=== PATIENT | female | born 1970 | race Caucasian/White ===

== ENCOUNTER 2017-01-08 09:58 | Emergency (ER) | payer OTHER ==
[2017-01-08 10:05] VITALS: BP 155/100; PULSE 74; TEMP 98.6; BMI 28.7
[2017-01-08] MEDS ORDERED: KETOROLAC TROMETHAMINE 60 MG/2 ML VIAL IM ONE (10:41)
[2017-01-08] MEDS ORDERED: KETOROLAC TROMETHAMINE 60 MG/2 ML VIAL ONE (10:43)
--- NOTE | 2017-01-08 10:53 | PDOC ---
History of Present Illness - General Chief Complaint: Back Pain Stated Complaint: BACK PAIN Time Seen by Provider: 01/08/17 10:32 History Source: Patient Exam Limitations: No Limitations - History of Present Illness Initial Comments: 01/08/17 10:50 CC several weeks of left lower back feliciano, getting worse; no trauma; no radiation Severity: reports: moderate Pain Location: reports: back Method of Injury: Yes: unknown (no trauma) Past History - Past Medical History Allergies/Adverse Reactions: Allergies Allergy/AdvReac Type Severity Reaction Status Date / Time No Known Allergies Allergy Verified 01/08/17 10:01 Home Medications: Ambulatory Orders NK [No Known Home Medication] 01/08/17 Other medical history: none - Psycho/Social/Smoking Cessation Hx Anxiety: No Suicidal Ideation: No Smoking History: Never smoked Have you smoked in the past 12 months: No Information on smoking cessation initiated: No Hx Alcohol Use: No Drug/Substance Use Hx: No Substance Use Type: None Review of Systems - Review of Systems Constitutional: No: Chills, Fever, Malaise HEENTM: No: Symptoms Reported Respiratory: No: Symptoms reported, Cough Cardiac (ROS): No: Symptoms Reported ABD/GI: No: Symptoms Reported : No: Symptoms Reported, Frequency, Flank Pain, Hematuria, Incontinence, Urgency Musculoskeletal: No: Symptoms Reported Integumentary: No: Symptoms Reported Neurological: No: Numbness, Paresthesia, Tingling, Weakness, Unsteady Gait *Physical Exam - Vital Signs Last Vital Signs Temp Pulse Resp BP Pulse Ox 98.6 F 74 18 155/100 100 01/08/17 10:02 01/08/17 10:02 01/08/17 10:02 01/08/17 10:02 01/08/17 10:02 - Physical Exam General Appearance: Yes: Appropriately Dressed. No: Apparent Distress HEENT: positive: TMs Normal, Pharynx Normal Neck: positive: Supple. negative: Tender, Rigid Respiratory/Chest: positive: Lungs Clear. negative: Chest Tender, Accessory Muscle Use Gastrointestinal/Abdominal: negative: Normal Bowel Sounds, Tender, Flat, Pulsatile Mass, Guarding, Tenderness Rectal Exam: positive: deferred Musculoskeletal: positive: Other (tender to area of left SI joint) Neurologic: positive: Alert, Motor Strength 5/5, Other (no foot drop; SLRs= no root pain). negative: Sensory Deficit, Babinski Deep Tendon Reflexes: Ankle (L): 1+, Ankle (R): 1+, Knee (L): 1+, Knee (R): 1+ Medical Decision Making - Medical Decision Making 01/08/17 11:34 Lower BP better post toradol *DC/Admit/Observation/Transfer Diagnosis at time of Disposition: Back pain Qualifiers: Back pain location: low back pain Chronicity: acute Back pain laterality: left Sciatica presence: without sciatica Qualified Code(s): M54.5 - Low back pain
[2017-01-08 11:02] LABS: URINE APPEARANCE CLEAR; URINE BILIRUBIN NEGATIVE (NEGATIVE); URINE COLOR YELLOW; URINE GLUCOSE (UA) NEGATIVE (NEGATIVE); URINE KETONE NEGATIVE (NEGATIVE); URINE LEUK ESTERASE NEGATIVE (NEGATIVE); URINE NITRITE NEGATIVE (NEGATIVE); URINE PROTEIN NEGATIVE (NEGATIVE); URINE UROBILINOGEN NEGATIVE E.U./dl (0.2-1.0)
[2017-01-08 11:05] LABS: URINE BLOOD 1+ (NEGATIVE)
[2017-01-08 11:07] LABS: URINE MUCUS RARE; URINE WBC <1 /hpf (3-5)
--- NOTE | 2017-01-08 11:42 | PDOC ---
*Physical Exam - Vital Signs Last Vital Signs Temp Pulse Resp BP Pulse Ox 98.6 F 74 18 155/100 100 01/08/17 10:02 01/08/17 10:02 01/08/17 10:02 01/08/17 10:02 01/08/17 10:02 ED Treatment Course - ADDITIONAL ORDERS Additional order review: Laboratory Results 01/08/17 10:40 Urine Color Yellow Urine Appearance Clear Urine pH 5.0 Urine Protein Negative Urine Glucose (UA) Negative Urine Ketones Negative Urine Blood 1+ H Urine Nitrite Negative Urine Bilirubin Negative Urine Urobilinogen Negative Ur Leukocyte Esterase Negative Urine HCG, Qual Negative - Medications Given in the ED: ED Medications Discontinued Medications Generic Name Dose Route Start Last Admin Trade Name Freq PRN Reason Stop Dose Admin Ketorolac Tromethamine 60 mg 01/08/17 10:41 01/08/17 11:14 Toradol Injection - IM 01/08/17 10:42 60 mg ONCE ONE Administration *DC/Admit/Observation/Transfer Diagnosis at time of Disposition: Back pain Qualifiers: Back pain location: low back pain Chronicity: acute Back pain laterality: left Sciatica presence: without sciatica Qualified Code(s): M54.5 - Low back pain - Prescriptions Prescriptions: Naproxen [Naprosyn -] 500 mg PO BID #30 tablet - Referrals Referrals: Shivam Hoskins MD [Staff Physician] -
[2017-01-08 11:52] LABS: URINE RBC 3 /hpf (0-3)
== END 2017-01-08 11:53 | disposition home or self-care (01) ==
LOC: JERFT 09:58
PROC: 3E0233Z Introduction of Anti-inflammatory into Muscle, Percutaneous Approach (ICD-10-PCS; principal; 2017-01-08)
DX: M54.5 Low back pain (principal)
CPT/HCPCS: 81003; 81015; 84703; 96372; 99281-25

== ENCOUNTER 2017-03-28 18:01 | Emergency (ER) | payer OTHER ==
[2017-03-28 18:21] VITALS: BP 117/77; PULSE 71; TEMP 98.1; BMI 27.1
[2017-03-28] MEDS ORDERED: traMADol HCL 50 MG TABLET PO ONE (18:56)
[2017-03-28] MEDS ORDERED: traMADol HCL 50 MG TABLET ONE (18:56)
--- NOTE | 2017-03-28 18:57 | PDOC ---
History of Present Illness - General Chief Complaint: Back Pain Stated Complaint: BACK PAIN Time Seen by Provider: 03/28/17 18:31 History Source: Patient - History of Present Illness Occurred: reports: other Pain Location: reports: back Past History - Past Medical History Allergies/Adverse Reactions: Allergies Allergy/AdvReac Type Severity Reaction Status Date / Time No Known Allergies Allergy Verified 03/28/17 18:19 Home Medications: Ambulatory Orders Naproxen [Naprosyn -] 500 mg PO BID #30 tablet 01/08/17 Lidocaine 5% Patch [Lidoderm Patch -] 1 patch TP DAILY #7 patch 03/28/17 Tramadol HCl 50 mg PO Q6H #15 tablet MDD 200mg 03/28/17 Other medical history: DENIES. - Psycho/Social/Smoking Cessation Hx Anxiety: No Suicidal Ideation: No Smoking History: Never smoked Have you smoked in the past 12 months: No Hx Alcohol Use: No Drug/Substance Use Hx: No Substance Use Type: None Review of Systems - Review of Systems Constitutional: No: Chills, Fever, Unexplained wgt Loss ABD/GI: No: Nausea, Vomiting : No: Dysuria, Flank Pain, Hematuria Musculoskeletal: Yes: Back Pain Neurological: No: Numbness, Tingling, Weakness *Physical Exam - Vital Signs Last Vital Signs Temp Pulse Resp BP Pulse Ox 98.1 F 71 19 117/77 99 03/28/17 18:19 03/28/17 18:19 03/28/17 18:19 03/28/17 18:19 03/28/17 18:19 - Physical Exam General Appearance: Yes: Appropriately Dressed, Mild Distress HEENT: positive: Normal Voice Respiratory/Chest: negative: Respiratory Distress Gastrointestinal/Abdominal: positive: Soft. negative: Tender Musculoskeletal: positive: Vertebral Tenderness (to L lower back). negative: CVA Tenderness Extremity: positive: Normal Inspection Integumentary: positive: Dry, Warm Neurologic: positive: Fully Oriented, Alert, Normal Mood/Affect, Motor Strength 01/04 Medical Decision Making - Medical Decision Making 03/28/17 18:57 46 yo F, no sig hx, p/w back pain. pt c/o intermittent L lower back pain x 2 months.no injury. Was seen in the ED 01/16 and given toradol w/ some relief and referred to PT. States she only had 2 sessions of PT because that is all her insurance allowed. Continues to have pain that worsened 2 weeks ago. Taking motrin w/ no relief. No LE pain, weakness, B/B incontinence, saddle anesthesia, dysuria, n/v/f/c or weight loss See exam LBP x 2 months M/l MSK No red flags at this time, i.e cauda equina, infxn -pain control in ED and reassess 03/28/17 18:58 03/28/17 19:34 03/28/17 20:11 Pt reports feeling better. Dc w/ rx and f/u with PMD *DC/Admit/Observation/Transfer Diagnosis at time of Disposition: Back pain Qualifiers: Back pain location: low back pain Chronicity: unspecified Back pain laterality : left Sciatica presence: without sciatica Qualified Code(s): M54.5 - Low back pain - Discharge Dispostion Disposition: HOME Condition at time of disposition: Improved - Prescriptions Prescriptions: Lidocaine 5% Patch [Lidoderm Patch -] 1 patch TP DAILY #7 patch Tramadol HCl 50 mg PO Q6H #15 tablet MDD 200mg - Patient Instructions Printed Discharge Instructions: DI for Low Back Pain Additional Instructions: La causa de saldivar dolor de espalda es muy probable muscular. [place] los medicamentos segn lo prescrito. Si el dolor persiste, por favor realice un seguimiento con saldivar mdico de atencin primaria para jazzmine posible resonancia magntica Print Language: PALAUAN
[2017-03-28] MEDS ORDERED: LIDOCAINE 5% TOPICAL PATCH TP ONE (19:50)
[2017-03-28] MEDS ORDERED: LIDOCAINE 5% TOPICAL PATCH ONE (19:52)
[2017-03-28] MEDS ORDERED: LIDOCAINE PATCH REMOVAL MC SCH (22:00)
== END 2017-03-28 20:01 | disposition home or self-care (01) ==
LOC: JERFT 18:01
DX: M54.5 Low back pain (principal); G89.29 Other chronic pain
CPT/HCPCS: 99281-25

== ENCOUNTER 2017-06-17 09:20 | Day surgery (SDC) | payer OTHER ==
[2017-06-13 11:50] VITALS: BMI 27.1
[2017-06-17] MEDS ORDERED: ACETAMINOPHEN 325 MG TABLET (FP) PO PRN (10:11)
[2017-06-17] MEDS ORDERED: ONDANSETRON 4 MG/2 ML VIAL IVPUSH PRN (10:11)
[2017-06-17] MEDS ORDERED: LACTATED RINGERS SOLUTION 1,000 ML IV SCH (10:15)
[2017-06-17] MEDS ORDERED: MIDAZOLAM HCL 2 MG/2 ML SINGLE DOSE VIAL ONE ×2 (10:30→10:43)
[2017-06-17] MEDS ORDERED: LEVOFLOXACIN 500 MG PREMIX BAG IVPB ONE ×2 (10:37)
--- NOTE | 2017-06-17 11:37 | OP ---
Operative Note - Note: Operative Date: 06/17/17 Pre-Operative Diagnosis: right renal stone Operation: right ESWL Post-Operative Diagnosis: Same as Pre-op Surgeon: Irving Siddiqui Anesthesia: Fractional
[2017-06-17 11:46] VITALS: TEMP 98
[2017-06-17 13:11] VITALS: BP 109/77; PULSE 72
--- NOTE | 2017-06-18 11:38 | SPEC ---
DATE OF OPERATION: 06/17/2017 PREOPERATIVE DIAGNOSIS: Right urolithiasis. POSTOPERATIVE DIAGNOSIS: Right urolithiasis. PROCEDURE: Right extracorporeal shock wave lithotripsy. ANESTHESIA: Fractional. ATTENDING: Irving Lao MD DESCRIPTION OF OPERATION: The patient was brought in the operating room and placed in supine position on the operating room table. Ultrasonography and fluoroscopy were performed. Two stones, each measuring 3 mm, were noted in the right mid and right lower poles. At this point, fractional anesthesia was administered. Shock wave lithotripsy was performed; 1250 impulses at 17 joules of power were administered to each stone. No complications were noted. The patient tolerated the procedure very well. Susana [id number]
== END 2017-06-17 13:15 | disposition home or self-care (01) ==
LOC: JASU-SURG 09:20
PROVIDERS: ATTEND Urology
PROC: 0TF3XZZ Fragmentation in Right Kidney Pelvis, External Approach (ICD-10-PCS; principal; 2017-06-17 11:00)
DX: N20.0 Calculus of kidney (principal)
CPT/HCPCS: 84703; 94760